=== PATIENT | female | born 1985 | race Two or more races ===

== ENCOUNTER 2024-12-09 06:07 | Emergency (ER) | payer OTHER ==
[~2024-12-09] VITALS: Ht 154.9 cm; Wt 89.8 kg
[2024-12-09] MEDS ORDERED: IRBESARTAN-HCT1 EAC1 PO (06:16)
[2024-12-09] MEDS ORDERED: LIDOCAINE HCL 1% 10ML VIAL ONE (07:21)
[2024-12-09] MEDS ORDERED: ACETAMINOPHEN 500 MG GEL..CAP PO STA (07:22)
[2024-12-09] MEDS ORDERED: TETANUS & DIPHTHERIA TOX,ADULT 0.5 ML VIAL IM STA (07:22)
[2024-12-09] MEDS ORDERED: CLINDAMYCIN PHOSPHATE 150 MG/ML (600mg) IM STA (07:22)
[2024-12-09] MEDS ORDERED: POVIDONE-IODINE 118 ML BOTT TOP ONE (07:26)
[2024-12-09] MEDS ORDERED: KETOROLAC TROMETHAMINE 60 MG VIAL IM STA (07:30)
[2024-12-09] MEDS ORDERED: KETOROLAC TROMETHAMINE 60 MG VIAL IM ONE (08:13)
[2024-12-09] MEDS ORDERED: ACETAMINOPHEN 500 MG GEL..CAP PO ONE (08:14)
[2024-12-09] MEDS ORDERED: CLINDAMYCIN PHOSPHATE 150 MG/ML (300mg) ONE (08:15)
[2024-12-09] MEDS ORDERED: DIPHTH,PERTUSS(ACELL),TET VAC 0.5 ML SYRINGE IM ONE (08:15)
== END 2024-12-09 12:39 | disposition home or self-care (01) ==
LOC: ER 06:07
DX: S81.022A Laceration with foreign body, left knee, initial encounter (principal); W45.8XXA Other foreign body or object entering through skin, initial encounter; Y93.89 Activity, other specified; Y92.89 Other specified places as the place of occurrence of the external cause; Z88.2 Allergy status to sulfonamides
CPT/HCPCS: 12002; 90471; 90714; J1670